=== PATIENT | female | born 1940 ===

== ENCOUNTER 2024-01-07 07:10 | Inpatient (IN) | payer OTHER ==
[~2024-01-07] VITALS: Ht 157.5 cm; Wt 81.6 kg
[~2024-01-07 07:10] MED LIST: CEFAZOLIN SOD 2 GM in D5W 50 ML IV ONE
[2024-01-07] MEDS ORDERED: ACETAMINOPHEN 325 MG TABLET ONE (07:39)
[2024-01-07] MEDS ORDERED: GABAPENTIN 300 MG CAPSULE ONE (07:42)
[2024-01-07] MEDS: GABAPENTIN 300 MG CAPSULE PO ONE (08:47)
[2024-01-07] MEDS: ACETAMINOPHEN 500 MG TABLET PO ONE (08:47)
[2024-01-07] MEDS ORDERED: PROPOFOL DRIP 100 ML IV ONE ×2 (09:32→11:44)
[2024-01-07] MEDS ORDERED: MIDAZOLAM HCL 2 MG/2 ML VIAL (VERSED) ONE (09:32)
[2024-01-07] MEDS ORDERED: ePHEDrine sulfate 50 MG/ML VIAL ONE (09:53)
[2024-01-07] MEDS ORDERED: NALOXONE HCL 0.4 MG/ML AMP (NARCAN) IVP PRN (10:45)
[2024-01-07] MEDS ORDERED: LR 1,000 ML IV ONE (10:45)
[2024-01-07] MEDS ORDERED: ONDANSETRON HCL 4 MG/2 ML VIAL IVP PRN (10:45)
[2024-01-07] MEDS ORDERED: fentaNYL CITRATE/PF 100 MCG/2 ML AMP IVP PRN ×2 (10:45)
[2024-01-07 13:05] VITALS: O2SAT 98
[2024-01-07] MEDS ORDERED: HYDROmorphone 1 MG/ML INJ. CARTRIDGE ONE (13:11)
[2024-01-07] MEDS: HYDROmorphone 1 MG/ML INJ. CARTRIDGE IVP PRN (13:12)
[2024-01-07 13:42] VITALS: BP_SYST 126; PULSE 76; RESP 16; TEMP 97.6
[2024-01-08] MEDS ORDERED: ceFAZolin SODIUM 2 GM in D5W 50 ML IV ONE (08:00)
== END 2024-01-07 16:00 | disposition home or self-care (01) | DRG 470 ==
LOC: SMU 07:10
PROVIDERS: ADMIT Orthopaedic Surgery Sports Medicine; ATTEND Orthopaedic Surgery Sports Medicine
PROC: 0SRD0JA Replacement of Left Knee Joint with Synthetic Substitute, Uncemented, Open Approach (ICD-10-PCS; principal; 2024-01-07 09:53)
DX: M17.12 Unilateral primary osteoarthritis, left knee (principal); Z79.899 Other long term (current) drug therapy
CPT/HCPCS: 73560; 87081; 88305; 88311; 93005; 97110-GP; 97116-GP; 97530-GP; C1713; C1776; J0690; J0696; J1170; J2405; J2704; J3370; J3465; J3490; J7060; J7120